=== PATIENT | female | born 2005 | race Two or more races ===

== ENCOUNTER 2024-06-21 17:24 | Emergency (ER) | payer MEDICAID, OTHER ==
[~2024-06-21] VITALS: Ht 160 cm; Wt 65.8 kg
[2024-06-21 17:29] VITALS: BP 113/69; TEMP 98.2
[2024-06-21 19:01] VITALS: O2SAT 98
== END 2024-06-21 19:02 | disposition home or self-care (01) ==
LOC: ER 17:59
DX: M25.531 Pain in right wrist (principal)
CPT/HCPCS: 73110